=== PATIENT | female | born 1990 | race Caucasian/White ===

== ENCOUNTER 2016-05-10 19:04 | Inpatient (IN) | payer OTHER ==
[2016-05-10] MEDS ORDERED: LACTATED RINGERS 1,000 ML ONE (20:29)
[2016-05-10] MEDS ORDERED: MINERAL OIL PO PRN (21:36)
[2016-05-10] MEDS ORDERED: BRETHINE SUB-Q PRN (21:36)
[2016-05-10] MEDS ORDERED: BRETHINE IVP PRN (21:36)
[2016-05-10] MEDS ORDERED: NARCAN 0.4 MG/1 ML IV PRN (21:36)
[2016-05-10] MEDS ORDERED: SUBLIMAZE IV PRN (21:36)
[2016-05-10] MEDS ORDERED: XYLOCAINE 2% INFILTRATI ONE (21:36)
[2016-05-10] MEDS ORDERED: ePHEDrine SULFATE IV PRN (21:36)
[2016-05-10] MEDS ORDERED: STADOL IV PRN (21:36)
[2016-05-10] MEDS ORDERED: ZOFRAN IV PRN (21:36)
[2016-05-10 21:52] LABS: Hematocrit 37.2 % (30.3-42.9); Hemoglobin 12.1 gm/dl (10.1-14.3); Mean Corpuscular HGB Conc 33 % (30-34); Mean Corpuscular Hemoglobin 27 pg (28-32); Mean Corpuscular Volume 83 fl (79-97); Platelet Count 232 K/mm3 (140-440); Red Blood Count 4.48 M/mm3 (3.65-5.03)
[2016-05-10] MEDS ORDERED: PITOCin/NS 20 UNIT/1000ML DRIP 20,000 MILLIUNITS/1,000 ML BAG IV SCH (22:00)
[2016-05-10] MEDS ORDERED: LACTATED RINGERS 1,000 ML IV SCH (22:00)
[2016-05-10 22:03] LABS: White Blood Count 20.6 K/mm3 (4.5-11.0)
[2016-05-10] MEDS: PITOCin/NS 30 UNIT/500ML 30,000 MILLIUNITS/500 ML BAG IV SCH (22:31)
[2016-05-10] MEDS ORDERED: ePHEDrine SULFATE ONE (23:37)
[2016-05-11] MEDS ORDERED: ePHEDrine SULFATE IV PRN (00:09)
--- NOTE | 2016-05-11 00:09 | Anesthesia Consultation ---
Anesthesia Consult and Med Hx Date of service: 05/11/16 - Airway Anesthetic Teeth Evaluation: Good ROM Head & Neck: Adequate Mental/Hyoid Distance: Adequate Mallampati Class: Class II Intubation Access Assessment: Probably Good - Pulmonary Exam CTA: Yes - Cardiac Exam Cardiac Exam: RRR - Pre-Operative Health Status ASA Pre-Surgery Classification: ASA2 Proposed Anesthetic Plan: Epidural, Spinal - Pulmonary Hx Asthma: No COPD: No Hx Pneumonia: No - Cardiovascular System Hx Hypertension: No - Central Nervous System Hx Seizures: No Hx Psychiatric Problems: No - Endocrine Hx Renal Disease: No Hx End Stage Renal Disease: No Hx Hypothyroidism: No Hx Hyperthyroidism: No - Hematic Hx Anemia: No Hx Sickle Cell Disease: No - Other Systems Hx Alcohol Use: Yes Hx Obesity: Yes - Additional Comments Anesthesia Medical History Comments: +
[2016-05-11] MEDS ORDERED: fentaNYL-BUPIV 2 MCG/ML-0.125% 200 MCG/100 ML BAG EPIDURAL SCH (01:00)
[2016-05-11] MEDS: PITOCin/NS 30 UNIT/500ML 30,000 MILLIUNITS/500 ML BAG IV SCH (04:33)
--- NOTE | 2016-05-11 06:49 | History and Physical Report ---
History of Present Illness Date of examination: 05/11/16 Date of admission: 05/10/16 20:17 Chief complaint: rupture of membranes History of present illness: Pt is a 26 year old female JESUS ALBERTO 05/02/16 at 41w2d who presents with rupture of membranes at 1810 PM- light meconium. She reports irregular contractions and light vaginal bleeding. She has had care with Dr Hugo since 8 wks that has been uncomplicated. She is GBS negative. Past History Past Medical History: no pertinent history Past Surgical History: no surgical history Family/Genetic History: none Social history: no significant social history - Obstetrical History Expected Date of Delivery: 05/02/16 Actual Gestation: 41 Week(s) 2 Day(s) : 2 Para: 0 Hx # Term Pregnancies: 0 Number of Pregnancies: 0 Spontaneous Abortions: 1 Induced : 0 Number of Living Children: 0 Medications and Allergies Allergies Allergy/AdvReac Type Severity Reaction Status Date / Time No Known Allergies Allergy Verified 05/10/16 03:31 Home Medications Medication Instructions Recorded Confirmed Last Taken Type No Known Home Medications [No 05/10/16 05/10/16 Unknown History Reported Home Medications] Active Meds: Active Medications Butorphanol Tartrate (Stadol) 2 mg IV Q2H PRN PRN Reason: Pain , Severe (7-10) Fentanyl (Sublimaze) 100 mcg IV Q2H PRN PRN Reason: Labor Pain Lactated Ringer's (Lactated Ringers) 1,000 mls @ 125 mls/hr IV DIRECT CARYL Last Admin: 05/11/16 00:14 Dose: 125 mls/hr Oxytocin/Sodium Chloride (Pitocin/Ns 20 Unit/1000ml Drip) 20,000 milliunits in 1,000 mls @ 125 mls/hr IV DIRECT CARYL Oxytocin/Sodium Chloride (Pitocin/Ns 30 Unit/500ml) 30,000 milliunits in 500 mls @ 4 mls/hr IV TITR CARYL PRN Reason: Protocol Last Admin: 05/11/16 04:33 Dose: 4 ml/hr, 4 mls/hr Fentanyl/Bupivacaine/Sodium Chlor (Fentanyl-Bupiv 2 Mcg/Ml-0.125%) 200 mcg in 100 mls @ 12 mls/hr EPIDURAL TITR CARYL PRN Reason: Protocol Mineral Oil (Mineral Oil) 30 ml PO QHS PRN PRN Reason: Constipation Naloxone HCl (Narcan 0.4 Mg/1 Ml) 0.1 mg IV Q2MIN PRN PRN Reason: Res Rate </= 8 or 02 SAT < 92% Ondansetron HCl (Zofran) 4 mg IV Q8H PRN PRN Reason: Nausea And Vomiting Review of Systems All systems: negative - Vital Signs Vital signs: Vital Signs Pulse BP 82 126/59 05/10/16 22:28 05/10/16 22:28 Temp Pulse Resp BP Pulse Ox 98.5 F 81 24 115/60 98 05/11/16 03:43 05/11/16 06:44 05/11/16 03:43 05/11/16 06:44 05/11/16 06:44 - Physical Exam Breasts: Positive: deferred Cardiovascular: Regular rate Lungs: Positive: Clear to auscultation Abdomen: Positive: soft (obese, gravid ) Genitourinary (Female): Positive: normal external genitalia Uterus: Positive: enlarged (gravid ) Extremities: Positive: normal - Obstetrical FHR: category 2 Uterine Contraction Monitor Mode: External Cervical Dilatation: 10 Cervical Effacement Percentage: 100 station: 0 Uterine Contraction Pattern: Irregular Uterine Tone Measurement Phase: Resting Uterine Contraction Intensity: Moderate Results Result Diagrams: 05/10/16 21:18 Abnormal lab results 05/10/16 Range/Units 21:18 WBC 20.6 H (4.5-11.0) K/mm3 MCH 27 L (28-32) pg All other labs normal. Assessment and Plan A: IUP at 41w2d SROM- light meconium Second stage labor GBS Negative P: Admit to labor and delivery. Pitocin augmentation. Routine intrapartum care. NICU for delivery.
--- NOTE | 2016-05-11 07:00 | Procedure Note ---
OB Delivery Note - Delivery Date of Delivery: 05/11/16 Surgeon: BEKAH DAVE Estimated blood loss: 500cc - Vaginal Delivery presentation: vertex Delivery position: OA Intrapartum events: PROM->1hr before delivery, meconium, decreased FHT variability, mult. late decelerations, mult.variable deceleratio Delivery induction: none Delivery augmentation: pitocin Delivery monitor: external FHT, external uterine Route of delivery: vacuum extraction Indicators for instrumentation: maternal exhaustion Delivery placenta: spontaneous Delivery cord: 3 umbilical vessels Episiotomy: none Delivery laceration: vaginal side wall (left), other (Bilateral periurethral ) Delivery repair: vicryl Anesthesia: epidural Delivery comments: Patient progressed to complete/complete/+2 with the head visible at the introitus without pushing. With maternal pushing efforts were noted to be poor and heart tones showed repetitive late decelerations. A Kiwi vacuum was placed on the head which was noted to be in the ADONIS position. The head delivered with 2 pulls and no pop offs. The vacuum was then released. Shoulders and body delivered without difficulty. The cord was clamped and cut and the was handed to NICU staff in attendance for meconium. Cord blood was collected. Placenta delivered spontaneously (intact, meconium-stained , multiple calcifications, 3 vessel cord). Vagina and perineum were explored. Bilateral periurethral lacerations were repaired with a red rubber catheter in the urethra using 3-0 Vicryl in a running fashion. A right vaginal sidewall laceration was repaired with 3-0 Vicryl in a running locked fashion. EBL 500 mL. - Infant A at 1 minute: 8 at 5 minutes: 9 Infant Gender: Female (3076g (6lb 13 oz @ 603am))
--- NOTE | 2016-05-11 07:12 | Event Note ---
Date: 05/11/16 Needle count after delivery incorrect. X-ray of the pelvis performed. No objects visualized on X-ray by Dr Tran. Follow up final read by radiology.
[2016-05-11] MEDS ORDERED: SODIUM CHLORIDE FLUSH SYRINGE 10 ML IV NR (08:34)
[2016-05-11] MEDS ORDERED: PHENERGAN PO PRN (08:34)
[2016-05-11] MEDS ORDERED: MILK OF MAGNESIA PO PRN (08:34)
[2016-05-11] MEDS ORDERED: TUCKS PAD TP PRN (08:34)
[2016-05-11] MEDS ORDERED: PHENERGAN PR PRN (08:34)
[2016-05-11] MEDS ORDERED: DERMOPLAST TP PRN (08:34)
[2016-05-11] MEDS ORDERED: PERCOCET 5/325 PO PRN (08:34)
[2016-05-11] MEDS ORDERED: BENADRYL PO PRN (08:34)
[2016-05-11] MEDS ORDERED: LANSINOH TP PRN (08:34)
[2016-05-11] MEDS ORDERED: PITOCin/NS 20 UNIT/1000ML DRIP 20 UNITS/1,000 ML BAG IV SCH (08:34)
[2016-05-11] MEDS ORDERED: DULCOLAX PR PRN (08:34)
[2016-05-11] MEDS ORDERED: TYLENOL PO PRN (08:34)
[2016-05-11] MEDS ORDERED: ZOFRAN IV PRN (08:34)
[2016-05-11] MEDS: PRENATAL VITAMIN PO SCH (09:05)
[2016-05-11] MEDS: FEOSOL PO SCH ×2 (09:05→21:19)
--- NOTE | 2016-05-11 09:05 | XRay Report ---
Single view pelvis: Findings: No radiopaque foreign body identified in the pelvis. Impression: No radiopaque foreign body seen.
[2016-05-11] MEDS: MOTRIN PO SCH ×3 (12:39→23:43)
[2016-05-11 20:03] LABS: Hematocrit 32.4 % (30.3-42.9); Hemoglobin 10.6 gm/dl (10.1-14.3)
[2016-05-12] MEDS: MOTRIN PO SCH ×3 (05:16→17:50)
[2016-05-12] MEDS ORDERED: BOOSTRIX IM ONE (06:00)
[2016-05-12] MEDS ORDERED: M-M-R II VACCINE SUB-Q ONE (07:03)
--- NOTE | 2016-05-12 08:10 | Progress Note ---
Assessment and Plan ppd 1 s/p . Doing well. will d/c home this pm Subjective - Subjective Date of service: 05/12/16 Principal diagnosis: ppd 1 s/p Interval history: Routine pp care. Patient reports: appetite normal, voiding normally, pain well controlled : doing well Objective - Vital Signs Latest vital signs: Vital Signs Temp Pulse Resp BP 05/12/16 00:25 98.3 F 72 20 105/52 05/11/16 16:11 97.9 F 80 20 122/66 05/11/16 12:39 18 05/11/16 11:50 98.4 F 77 20 120/42 05/11/16 08:15 97.9 F 62 18 127/67 Intake and Output 05/11/16 05/12/16 05/12/16 22:59 06:59 14:59 Intake Total 600 510 Output Total 600 Balance 0 510 Intake: Oral 600 510 Output: Urine 600 Void 600 Other: Total, Intake Amount 240 270 Total, Output Amount 600 # Voids Void 1 1 - Exam Breasts: Present: deferred Cardiovascular: Present: Regular rate, Normal S1, Normal S2 Lungs: Present: Clear to auscultation Abdomen: Present: normal appearance, soft Vulva: both: normal Uterus: Present: normal, firm Extremities: Present: normal Incision: Present: normal, dry, intact
--- NOTE | 2016-05-12 08:15 | Discharge Summary ---
Providers - Providers Date of Admission: 05/10/16 20:17 Date of discharge: 05/13/16 Attending physician: SATHISH SALAS 05/11/16 08:34 Consult to Pharmacy Informaticist [CONS] Routine Reason For Exam: assistance with , SNS Primary care physician: SATHISH SALAS Hospitalization Reason for admission: active labor Delivery: Procedure details: s/p Episiotomy: none Laceration: 2nd degree Incision: intact Other procedures: none complications: none Discharge diagnosis: IUP at term delivered [place] baby: female Hospital course: routine pp course. doing well. Condition at discharge: Good Disposition: DISCHARGED TO HOME OR SELFCARE - Discharge Diagnoses (1) Post term at 41 weeks gestation Status: Acute (2) (normal spontaneous vaginal delivery) Status: Acute Plan - Discharge Medications Prescriptions: Ibuprofen [Motrin 600 MG tab] 600 mg PO Q6H #30 tablet oxyCODONE /ACETAMINOPHEN [Percocet 5/325 mg] 1 tab PO Q6H PRN #30 tablet PRN Reason: Pain, Moderate (4-6) - Provider Discharge Summary Activity: routine, no sex for 6 weeks, no heavy lifting 4 weeks, no strenuous exercise Diet: routine Instructions: routine Additional instructions: [] Smoking cessation referral if applicable(refer to patient education folder for contact #) [] Refer to [facility] Booklet Call your doctor immediately for: * Fever > 100.5 * Heavy vaginal bleeding ( >1 pad per hour) * Severe persistent headache * Shortness of breath * Reddened, hot, painful area to leg or breast * Drainage or odor from incision. * Keep incision clean and dry at all times and follow doctor's instructions regarding bathing/showering - Follow up plan Follow up: SATHISH SALAS MD [Primary Care Provider] - 6 Weeks
--- NOTE | 2016-05-12 09:35 | Progress Note ---
Subjective Date of service: 05/12/16 Principal diagnosis: ppd 1 s/p Interval history: 1st day after normal vaginal delivery Patient is in the bed, comfortable. Pain is well controlled with pain meds. Ambulated well. No residual neurological deficit. No anesthesia complications Objective - Constitutional Vitals: Vital Signs - 12hr 05/12/16 05/12/16 00:25 07:30 Temperature 98.3 F 97.6 F Pulse Rate [ 72 From Monitor] Pulse Rate [ 76 Right Radial] Respiratory 20 18 Rate Blood Pressure 105/52 104/64 [Right Arm] - Labs CBC & Chem 7: 05/11/16 19:30
[2016-05-12] MEDS: FEOSOL PO SCH ×2 (10:12→21:53)
[2016-05-12] MEDS: PRENATAL VITAMIN PO SCH (10:12)
[2016-05-12] MEDS ORDERED: FLUARIX QUAD 2016-2017(36 MOS+) IM ONE (12:00)
[2016-05-13] MEDS: MOTRIN PO SCH ×2 (00:03→05:41)
[2016-05-13 08:25] VITALS: BP 100/60
[2016-05-13] MEDS: PRENATAL VITAMIN PO SCH (10:35)
[2016-05-13] MEDS: FEOSOL PO SCH (10:35)
== END 2016-05-13 12:45 | disposition home or self-care (01) | DRG 775 ==
LOC: TRG 19:04 → LD 19:49 → TRG 20:16 → LD 20:17 → OB 05-11 07:59
PROVIDERS: ADMIT Specialist; ATTEND Specialist
PROC: 10D07Z6 Extraction of Products of Conception, Vacuum, Via Natural or Artificial Opening (ICD-10-PCS; principal; 2016-05-11)
PROC: 0UQGXZZ Repair Vagina, External Approach (ICD-10-PCS; 2016-05-11)
PROC: 0UQMXZZ Repair Vulva, External Approach (ICD-10-PCS; 2016-05-11)
PROC: 00HU33Z Insertion of Infusion Device into Spinal Canal, Percutaneous Approach (ICD-10-PCS; 2016-05-11)
PROC: 3E0R3CZ (ICD-10-PCS; 2016-05-11)
DX: O76 Abnormality in fetal heart rate and rhythm complicating labor and delivery (principal); O62.1 Secondary uterine inertia; O99.214 Obesity complicating childbirth; Z37.0 Single live birth; Z68.34 Body mass index [BMI] 34.0-34.9, adult; Z3A.41 41 weeks gestation of pregnancy; O77.0 Labor and delivery complicated by meconium in amniotic fluid; O71.82 Other specified trauma to perineum and vulva; O42.02 Full-term premature rupture of membranes, onset of labor within 24 hours of rupture; O70.1 Second degree perineal laceration during delivery; O48.0 Post-term pregnancy
CPT/HCPCS: 36415; 72170; 85014; 85018; 85027; 86850; 86900; 86901; 88307; 90471; 90686; 90715; 99211; A6250; G0008; G0463; J2590; J3010; J7120